=== PATIENT | female | born 1975 | race African-American/Black ===

== ENCOUNTER 2017-04-08 08:22 | Emergency (ER) | payer OTHER ==
[~2017-04-08] VITALS: Ht 175.3 cm; Wt 66.8 kg
--- NOTE | 2017-04-08 08:27 | NUR ---
TABATHA FROM [facility] REPORTED SEIZURE DESCRIBED "ARCHING" OF THE BACK. PATIENT RECEIVED AWAKE AND ALERT, ON PRONE POSITION, STILL NOTED WITH ARCHING OF THE BACK, PATIENT NOTED VERBALLY RESPONSIVE AAO3. IN NO DISTRESS,. VSS
--- NOTE | 2017-04-08 08:28 | NUR ---
MD ETIENNE AT BEDSIDE
[2017-04-08 08:51] LABS: BASOPHILS % (AUTO) 0.5 % (0.0-2.0); EOSINOPHILS # (AUTO) 0.1 /CMM (0.0-0.7); EOSINOPHILS % (AUTO) 1.2 % (0.0-6.0); HEMATOCRIT 38 % (33-45); HEMOGLOBIN 12.6 g/dL (11.5-14.8); LYMPHOCYTES % (AUTO) 29.7 % (20.0-44.0); MEAN CORPUSCULAR HEMOGLOBIN 28 PG (26.0-33.0); MEAN CORPUSCULAR HGB CONC 34 g/dl (31.0-36.0); MEAN CORPUSCULAR VOLUME 83 fL (82-100); MONOCYTES # (AUTO) 0.5 /CMM (0.1-1.30); MONOCYTES % (AUTO) 7.7 % (2.0-12.0); NEUTROPHILS # (AUTO) 4.1 /CMM (1.8-8.9); NEUTROPHILS % (AUTO) 60.9 % (43.0-81.0); PLATELET COUNT (AUTO) 272 /CMM (150-450); RDW COEFFICIENT OF VARIATION 15.7 (11.5-15.0); RED BLOOD CELL COUNT(AUTO) 4.55 MIL/uL (4.0-5.2); WHITE BLOOD COUNT (AUTO) 6.7 K/uL (4.3-11.0)
[2017-04-08 09:05] LABS: CALCIUM, SERUM 8.7 mg/dL (8.5-10.1); CARBON DIOXIDE 26 mmol/L (21-32); CHLORIDE 102 mmol/L (98-107); CREATININE 0.6 mg/dL (0.6-1.3); GLUCOSE 96 mg/dL (74-106); POTASSIUM 3.9 mmol/L (3.5-5.1); SODIUM SERUM 138 mmol/L (136-145); UREA NITROGEN, BLOOD 14 mg/dL (7-18)
[2017-04-08 09:08] LABS: ALCOHOL, BLOOD < 3 mg/dL (0-0)
--- NOTE | 2017-04-08 09:31 | NUR ---
PT IS BACK FROM CT
--- NOTE | 2017-04-08 09:31 | NUR ---
URINE SAMPLE SENT TO LAB
[2017-04-08] MEDS ORDERED: PHENYTOIN EXTENDED RELEASE 100 MG CAPSULE PO ONE ×2 (10:00→10:01)
--- NOTE | 2017-04-08 10:04 | NUR ---
SO.ANISA MEHTA CALLED, REPORT GIVEN TO MARÍA TEJADA FOR ROXANNA
--- NOTE | 2017-04-08 10:10 | NUR ---
CALLED TRANSPORT ETA 60MIN PER MAY TRIP NUMBER IS [phone]
--- NOTE | 2017-04-08 10:11 | NUR ---
DILANTIN GIVEN ORDERED
[2017-04-08 10:43] VITALS: BP 163/99
--- NOTE | 2017-04-08 10:56 | NUR ---
PATIENT PICKED BY [employer] INSPECTOR. VSS
== END 2017-04-08 10:58 | disposition home or self-care (01) ==
LOC: ER 08:28
DX: G43.909 Migraine, unspecified, not intractable, without status migrainosus (principal); R79.1 Abnormal coagulation profile; F29 Unspecified psychosis not due to a substance or known physiological condition; J45.909 Unspecified asthma, uncomplicated; F31.9 Bipolar disorder, unspecified; Z88.5 Allergy status to narcotic agent; Z88.6 Allergy status to analgesic agent; Z60.2 Problems related to living alone
CPT/HCPCS: 36415; 70450; 80048; 80185; 80305; 84703; 85025; 99285; A4606; G0480; Z7610